=== PATIENT | male | born 1985 | race Caucasian/White ===

== ENCOUNTER 2019-10-11 14:20 | Outpatient (CLI) | payer OTHER, SELFPAY ==
[2019-10-11 14:39] LABS: Post Vasectomy Sperm Presence None Seen (None Seen)
== END 2019-10-11 14:21 | disposition home or self-care (01) ==
LOC: CHSLAB 14:25
PROVIDERS: Visit Provider Family Medicine
DX: Z98.52 Vasectomy status (principal)
CPT/HCPCS: 88160; 89321